=== PATIENT | female | born 1945 | race Caucasian/White ===

== ENCOUNTER 2017-12-04 13:54 | Outpatient (CLI) | payer MEDICARE, OTHER ==
[~2017-12-04 13:54] MED LIST: Iopamidol 370 76% 100 ML VIAL ONE
== END 2017-12-04 13:55 | disposition home or self-care (01) ==
LOC: BICCT 13:54
PROVIDERS: ATTEND Internal Medicine
DX: R59.0 Localized enlarged lymph nodes (principal); E04.1 Nontoxic single thyroid nodule; N28.9 Disorder of kidney and ureter, unspecified
CPT/HCPCS: 71260

== ENCOUNTER 2017-12-28 10:15 | Outpatient (CLI) | payer MEDICARE, OTHER ==
--- NOTE | 2017-12-28 13:00 | PET ---
RADIONUCLIDE PET SCAN WITH CT ATTENUATION CORRECTION: Date: 12/28/17 HISTORY: Lung nodule. COMPARISON: Prior CT exam from 12/04/17 and 12/21/16. FINDINGS: Physiologic uptake of radiotracer is present throughout the enteric system and along each urinary tra ct. The enlarging mass at the lateral aspect of the right lung base shows increased radiotracer uptak e with a maximum SUV of 6.4. Just posterior to the inferior margin right thyroid lobe, a focus of increased radiotracer uptake polo ws a maximum SUV of 6.8. On the current nondiagnostic CT attenuation correction images, this nodule i s 1.7 cm AP diameter and is slightly less dense than the adjacent thyroid gland. On prior CT chest, w ith contrast, the lesion was of similar enhancement to the thyroid gland. No hypermetabolic activity is associated with the lymph nodes about the mediastinum that have been sl ightly enlarged on prior CT exams. No other areas of abnormal radiotracer uptake. IMPRESSION: 1. While inflammatory process could explain the right lung abnormality, the enlargement and hypermet abolic activity favor neoplasm. 2. Hypermetabolic nodule just to the right of midline at the neck base. On the current CT, it is fav ored to be separate from the thyroid gland, lying immediately posterior to the inferior pole right th yroid lobe. Primary concern is that of lymph node involvement of neoplasm. Please consider thyroid so nogram for better characterization of the thyroid gland and its relation to this nodule. 3. No hypermetabolic mediastinal lymph nodes. POS: [facility]
== END 2017-12-28 10:16 | disposition home or self-care (01) ==
LOC: PET 10:15
PROVIDERS: ATTEND Internal Medicine Sleep Medicine
DX: R91.8 Other nonspecific abnormal finding of lung field (principal); R22.1 Localized swelling, mass and lump, neck
CPT/HCPCS: 78815; A9552

== ENCOUNTER 2018-04-10 09:13 | Outpatient (CLI) | payer MEDICARE, OTHER ==
--- NOTE | 2018-04-10 13:09 | MRI ---
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 COMPARISON: 10/28/2014 and 01/25/2013. CORRELATION: Chest CT 12/04/2017, PET imaging 12/28/2017. TECHNIQUE: MRI of the lumbar spine is performed without intravenous Gadolinium administration. Multisequential, multiplanar imaging is performed. FINDINGS: Straightening of normal cervical lordosis, unchanged. Appropriate T1 marrow signal intensity of the lumbar vertebrae. There is no fracture. No significant STIR hyperintensity is to suggest vertebral body edema from fracture. No evidence of ligamentous injury. Minimal type I Modic change at the sup erior end plate of L3. Type I-II Modic changes involve the inferior end plate of L5. Type II Modic changes at L4-L5 disk space. Complex lesion in the left kidney, unchanged from previous chest CT. Left renal cyst is noted. Symm etric signal intensity of the psoas muscle. Small exophytic T2 hyperintense lesion emanating from th e lower pole of the right kidney. Conus medullaris terminates at the superior aspect of T12-L1. T12-L1: No high-grade central canal stenosis or high-grade foraminal narrowing. L1-L2: Distal thoracic spine also does not demonstrate high-grade central canal stenosis or high-gra de foraminal narrowing. L1-L2: Desiccation with moderate loss of disk space height. Generalized disk bulge results in mild central canal stenosis. Neural foramina are patent bilaterally. L2-L3: Desiccation with mild loss of disk space height. Generalized disk bulge results in mild cent ral canal stenosis. Neural foramina are patent bilaterally. L3-L4: Desiccation with severe loss of disk space height. Broad-based disk bulge, ligamentum flavum thickening, and facet hypertrophy result in mild central canal stenosis. There is minimal midline i nferior disk extrusion. Mild right and left foraminal narrowing. L4-L5: Sever loss of disk space height. Broad-based disk bulge, ligamentum flavum thickening, and f acet hypertrophy result in mild to moderate central canal stenosis. There is narrowing of both subar ticular zones with partial obscuration of traversing bilateral L5 nerve roots. Moderate right and mo derate to severe left foraminal narrowing. L5-S1: Moderate loss of disk space height. Generalized disk bulge results in mild central canal chidi nosis. Ligamentum flavum thickening is noted. Moderate bilateral foraminal narrowing. IMPRESSION: Degenerative lumbar spine as above. POS: [facility]
--- NOTE | 2018-04-10 14:01 | NM ---
WHOLE BODY BONE SCAN: HISTORY: Low back pain, unknown other spondylosis with radiculopathy, and osteoarthritis of the spine with rad iculopathy. CORRELATION: MRI lumbar spine from same date. RADIOPHARMACEUTICAL: Technetium 99m MDP 32 millicuries injected intravenously. FINDINGS: There is mild increased uptake in the L4 and L5 regions, consistent with degenerative changes. There is increased uptake in the shoulders, elbows, and feet, also consistent with degenerative change. N o other abnormal areas of tracer localization are seen in the skeleton. Tracer excretion through the kidneys is within normal limits. IMPRESSION: Degenerative changes. No evidence of osseous metastatic disease. POS: [facility]
== END 2018-04-10 09:14 | disposition home or self-care (01) ==
LOC: NM 09:13
PROVIDERS: ATTEND Anesthesiology Pain Medicine
DX: M47.24 Other spondylosis with radiculopathy, thoracic region (principal); M51.26 Other intervertebral disc displacement, lumbar region; M47.816 Spondylosis without myelopathy or radiculopathy, lumbar region
CPT/HCPCS: 72148; 78306; A9503

== ENCOUNTER 2018-07-09 15:12 | Outpatient (CLI) | payer MEDICARE, OTHER ==
--- NOTE | 2018-07-09 16:25 | RAD ---
SEVEN VIEWS CERVICAL SPINE: HISTORY: Acute cervical radiculopathy. FINDINGS: AP, lateral, flexion, extension, both oblique views of the cervical spine as well as open mouth odont oid view cervical spine. Seven views cervical spine demonstrate the right-sided distal common and proximal right ICA endovascu lar stent. There is mild anterior osteophyte seen at the C2-3 level. Mild disk space height loss with anterior and posterior osteophytes seen at C3-4. Minimal anterior osteophytes are also seen anterior to the C 4, C5, C6, and C7 levels. Disk space height loss with anterior and posterior osteophytes also seen a t C6-7. IMPRESSION: C6-7 changes of spondylosis. No evidence of acute cervical spine fracture =s, subluxations, or signi ficant neural foraminal narrowing seen. No evidence of john- or retrolisthesis seen. POS: [facility]
--- NOTE | 2018-07-09 16:53 | MRI ---
MRI CERVICAL SPINE: HISTORY: Acute cervical radiculopathy, M54.12. TECHNIQUE: Multiplanar, multisequence, noncontrast-enhanced MR images of the cervical spine obtained. FINDINGS: The cervical cord is unremarkable with no evidence of masses or lesions. C1-C2: Unremarkable. C2-C3: Unremarkable. C3-C4: Unremarkable. C4-C5: There is mild disk desiccation seen. No significant degree of central stenosis or neural for aminal narrowing is seen. C5-C6: Unremarkable. C6-C7: Disk desiccation is seen. There is a mild broad-based disk osteophyte complex, minimally but not significantly compressing the thecal sac. The neural foramen are patent. C7-T1: Unremarkable. IMPRESSION: 1. C6-C7 disk desiccation. 2. No significant degree of central or neural foraminal narrowing seen. POS: [facility]
== END 2018-07-09 15:13 | disposition home or self-care (01) ==
LOC: BICMRI 15:12
PROVIDERS: ATTEND Anesthesiology Pain Medicine
DX: M47.22 Other spondylosis with radiculopathy, cervical region (principal); M50.123 Cervical disc disorder at C6-C7 level with radiculopathy
CPT/HCPCS: 72052; 72141

== ENCOUNTER 2018-07-30 07:37 | Outpatient (CLI) | payer MEDICARE, OTHER ==
--- NOTE | 2018-07-30 09:32 | CT ---
NONCONTRAST CT THORAX: DATE: 07/30/2018. HISTORY: Lung nodule. Followup evaluation. COMPARISON: 12/04/[address] exam on 12/28/2017. FINDINGS: Previously noted nodule posterior to the right lobe of the thyroid gland is again seen measuring 1.2 cm and unchanged in size. Again noted are scattered mediastinal lymph nodes measuring up to 10 mm in short axis dimension which are mildly prominent but stable when compared to prior exam. Both soft tissue densities seen within the hilar regions bilaterally, which is not well evaluated on this nonenhanced CT scan exam. Severe emphysematous changes are again seen throughout the lungs bilaterally, greater in the upper lo bes. The previously noted 6 mm right middle lobe pulmonary nodule is again seen and unchanged in size or a ppearance. Spiculated-appearing mass in the right lower lobe laterally is again seen. This irregular spiculated -appearing mass is difficult to accurately measure but is overall similar in size and appearance to t he prior exam. Greatest transverse dimension obtained on prior study was 11 mm, and this measurement is also again obtained on today's exam. No new pulmonary nodule or mass is seen and there is no pleural effusion. Vascular calcifications are again seen in the thoracic aorta and involving the coronary arteries as w ell as visualized upper abdominal aorta. Post cholecystectomy changes are seen. There are fat density subcentimeter lesions superior pole left kidney likely attributable to angiomye lipoma. The mix-attenuation but predominantly fat density lesion at the lateral aspect mid portion l eft kidney is smaller in size on this exam with associated calcifications. This could potentially be related to interval treatment. Clinical correlation recommended. Mild degenerative changes are seen in the spine with a few scattered Schmorl's nodes again seen. No obvious lytic or sclerotic osseous lesions are seen. IMPRESSION: 1. Stable irregular spiculated nodular density in the right lower lobe again worrisome for a neoplas tic process. 2. Stable right middle lobe pulmonary nodule. 3. Stable size of nodule posterior to the right lobe of the thyroid gland. 4. Stable mediastinal lymphadenopathy. Hilar lymphadenopathy is also likely stable, but difficult t o evaluate on this nonenhanced CT exam. 5. 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 The larger lesion in the lat eral aspect mid portion of the left kidney is less well delineated. 6. Chronic obstructive pulmonary disease with bullous emphysematous changes throughout the lungs albaro aterally. POS: [facility]
== END 2018-07-30 07:38 | disposition home or self-care (01) ==
LOC: BICCT 07:37
PROVIDERS: ATTEND Internal Medicine Critical Care Medicine
DX: R91.1 Solitary pulmonary nodule (principal); E04.1 Nontoxic single thyroid nodule; R59.0 Localized enlarged lymph nodes; J98.4 Other disorders of lung; N28.9 Disorder of kidney and ureter, unspecified; J44.9 Chronic obstructive pulmonary disease, unspecified
CPT/HCPCS: 71250

== ENCOUNTER 2018-08-16 13:16 | Outpatient (CLI) | payer MEDICARE, OTHER ==
--- NOTE | 2018-08-16 15:54 | PET ---
PET CT: HISTORY: 73-year-old female with lung nodule. COMPARISON: 12/28/17. TECHNIQUE: A PET CT was performed from the skull base through the mid thigh after administration of 11.1 mCi F18 -FDG. FINDINGS: Emphysematous changes are seen throughout the lungs. There is a spiculated region in the superior asp ect of the right lower lobe. This measures approximately 1.4 cm in greatest dimension and appears sli ghtly smaller than on the prior examination. This demonstrates hypermetabolic activity with a max SUV value of 3.2. There is peripheral hypermetabolic activity in the bilateral lower lobes which is of uncertain signif icance and without significant CT correlate. Max SUV value in this peripheral hypermetabolic activity is 2.8. There is a persistent stable well circumscribed mass posterior to the right lobe of the thyroid in th e neck and to the right of the esophagus. This measures 1.7 cm in size and has hypermetabolic activit y with a max SUV value of 6.8. CT images used for attenuation correction shows the patient to be status post cholecystectomy and hys terectomy. There are stents in the bilateral proximal common iliac arteries. A few scattered divertic rowan are seen in the colon. No suspicious or hypermetabolic activity seen in the mid and upper neck. No suspicious or hypermetabo lic activity seen in the abdomen or pelvis. No suspicious or hypermetabolic activity seen within the skeleton. IMPRESSION: 1. There is a hypermetabolic mass in the superior aspect of the right lower lobe. This appears to sanchez ve decreased in size and is of uncertain significance. This could represent infectious or malignant p rocess. 2. Nonspecific hypermetabolic activity in the peripheral bilateral lower lobes. This could represent an infectious process without a CT correlate. 3. Persistent hypermetabolic mass posterior to the right thyroid lobe. This could represent an enlar ged lymph node. This could also represent a parathyroid adenoma. Recommend correlation with calcium l evels and parathyroid hormone levels. POS: [facility]
== END 2018-08-16 13:17 | disposition home or self-care (01) ==
LOC: PET 13:16
PROVIDERS: ATTEND Internal Medicine Critical Care Medicine
DX: R91.1 Solitary pulmonary nodule (principal); E07.9 Disorder of thyroid, unspecified
CPT/HCPCS: 78815; A9552

== ENCOUNTER 2018-12-31 09:42 | Outpatient (CLI) | payer MEDICARE, OTHER ==
--- NOTE | 2018-12-31 11:50 | MRI ---
Exam: MRI thoracic spine without contrast HISTORY: T4 vertebral body compression fracture. COMPARISON: None FINDINGS: Appropriate T1 marrow signal intensity of the thoracic vertebra. Thoracic spine vertebral b trini height is maintained. There is no fracture. No significant STIR hyperintensity to suggest vertebral body edema or ligamentous injury. Visualized mediastinum, lung parenchyma and solid organs have normal signal intensity The thoracic cord has a normal size and signal intensity Conus medullaris terminates at the superior aspect of L1 Throughout the thoracic spine, no significant central canal stenosis or significant neural foraminal narrowing IMPRESSION: 1. No significant central canal stenosis or foraminal narrowing throughout the thoracic spine 2. No MR evidence of a osseous metastatic deposit in the thoracic vertebra. No evidence of a patholog ic fracture.
== END 2018-12-31 09:43 | disposition home or self-care (01) ==
LOC: BICMRI 09:42
PROVIDERS: ATTEND Anesthesiology Pain Medicine
DX: S22.049A Unspecified fracture of fourth thoracic vertebra, initial encounter for closed fracture (principal); M54.14 Radiculopathy, thoracic region
CPT/HCPCS: 72146

== ENCOUNTER 2019-02-18 09:34 | Outpatient (CLI) | payer MEDICARE, OTHER ==
--- NOTE | 2019-02-18 10:19 | CT ---
EXAM: CT of the chest without contrast HISTORY: Lung nodule COMPARISON: 07/30/2018 TECHNIQUE: Multiple contiguous axial images were obtained in a CT the chest without contrast. Coronal and sagittal reformats were performed. FINDINGS: HEART: Normal in size without focal cardiac abnormality MEDIASTINUM: No hilar or mediastinal lymphadenopathy. Evaluation of the mediastinum is limited withou t IV contrast. LUNGS: Emphysematous changes are seen in the lungs. The previously seen nodular area in the right low er lobe has again decreased in size and now has a soft tissue density measuring only 6 mm. This is associated with scarring. There is a well-circumscribed 5 mm nodule in the right middle lobe. This is grossly stable in size. PLEURAL SPACE: No pneumothorax or pleural effusion. CHEST WALL SOFT TISSUES: Unremarkable OSSEOUS STRUCTURES: Degenerative changes in the spine. VISUALIZED SUBDIAPHRAGMATIC STRUCTURES: Unremarkable IMPRESSION: 1. The nodular area in the right lower lobe has again decreased in size and may represent sequelae fr om a prior infectious process. 2. Stable right middle lobe nodule
== END 2019-02-18 09:35 | disposition home or self-care (01) ==
LOC: BICCT 09:34
PROVIDERS: ATTEND Internal Medicine Critical Care Medicine
DX: R91.1 Solitary pulmonary nodule (principal)
CPT/HCPCS: 71250

== ENCOUNTER 2020-07-01 08:54 | Outpatient (CLI) | payer MEDICARE, OTHER ==
--- NOTE | 2020-07-01 09:28 | CT ---
CT OF THE THORAX WITHOUT IV CONTRAST INDICATION: Follow-up pulmonary nodule COMPARISON: CT of the thorax dated 02/18/2019, 08/09/2018, December 04, 2017 and December 21, 2016. FINDINGS: LUNGS: The waxing and waning pulmonary nodule within the anterior aspect of the right lower lobe, on image 98 of series 3, now demonstrates increased surrounding reticular nodularity. The largest nodule associated with this grouping measures 10 cm, the additional measure 4 mm. The more prominent central nodular region is slightly larger now measuring 1.2 cm were previously measured 6 mm. Severe emphysema is stable. 6 mm right middle lobe pulmonary nodule is stable. No new pulmonary nodul e seen within the left lung. Pleural spaces: Clear Lymph nodes: Mildly prominent anterior mediastinal lymph node is similar. Heart and great vessels: There are prominent coronary artery and thoracic aortic calcifications. Upper abdomen: There is prominent fatty liver. There is stable small angiomyolipoma of the left kidne y. Adrenal glands are normal appearing. The gallbladder surgically absent. Osseous structures: There is scattered degenerative and osteoarthritic change. IMPRESSION: 1. Interval increase in size of the right lower lobe pulmonary nodule that is demonstrated on prior e xaminations to wax and wane suspicious for an inflammatory nodule; however, the more central nodular prominence has increased in size to 1.2 cm, where upon the prior examination the nodule previ ously measured 6 mm. Neoplasm cannot be entirely excluded from this region based on the current findings. Would recommend a short-term follow-up after appropriate therapy in 6-8 weeks to reevaluate size and appearance of the right lower lobe pulmonary nodules. 2. 6 mm right middle lobe pulmonary nodule is stable and likely benign. 3. Prominent fatty liver. 4. Stable angiomyolipoma of the left kidney.
== END 2020-07-01 08:55 | disposition home or self-care (01) ==
LOC: BICCT 08:54
PROVIDERS: ATTEND Internal Medicine Critical Care Medicine
DX: R91.8 Other nonspecific abnormal finding of lung field (principal); K76.0 Fatty (change of) liver, not elsewhere classified; D17.71 Benign lipomatous neoplasm of kidney
CPT/HCPCS: 71250

== ENCOUNTER 2022-03-01 14:13 | Outpatient (CLI) | payer MEDICARE, OTHER | END 2022-03-01 14:14 | disposition home or self-care (01) | LOC: SCSMRI 14:13 | PROVIDERS: ATTEND Anesthesiology Pain Medicine | DX: M47.22 Other spondylosis with radiculopathy, cervical region (principal); M50.121 Cervical disc disorder at C4-C5 level with radiculopathy; M48.02 Spinal stenosis, cervical region; M48.03 Spinal stenosis, cervicothoracic region; M25.78 Osteophyte, vertebrae | CPT/HCPCS: 72141 ==

== ENCOUNTER 2023-06-19 11:10 | Outpatient (CLI) | payer MEDICARE, OTHER | END 2023-06-19 11:11 | disposition home or self-care (01) | LOC: SCSCT 11:10 | PROVIDERS: ATTEND Internal Medicine | DX: R91.8 Other nonspecific abnormal finding of lung field (principal); E04.1 Nontoxic single thyroid nodule; J43.9 Emphysema, unspecified | CPT/HCPCS: 71250 ==

== ENCOUNTER 2024-03-27 12:28 | Outpatient (CLI) | payer MEDICARE, OTHER | END 2024-03-27 12:29 | disposition home or self-care (01) | LOC: BICCT 12:28 | PROVIDERS: ATTEND Internal Medicine Critical Care Medicine | DX: R91.8 Other nonspecific abnormal finding of lung field (principal); J43.9 Emphysema, unspecified; N28.89 Other specified disorders of kidney and ureter | CPT/HCPCS: 71250 ==